=== PATIENT | female | born 1940 | race Caucasian/White ===

== ENCOUNTER 2017-12-25 10:30 | Emergency (ER) | payer MEDICARE ==
[2017-12-25 10:55] VITALS: BP 135/68
--- NOTE | 2017-12-25 11:21 | UC ---
Skin Complaint HPI - HPI Summary HPI Summary: 77 year old female with skin concern . 6 days ago had grand kid accidentally kick her and cut her leg . no metal . has had some intermittent pain in the leg. she was not sure if she should get it sutured. no SOB no fever. no calf pain. no discharge or streaking of the area PATIENT IS HARD OF HEARING LAST WEDNESDAY WAS PLAYING ON THE FLOOR WITH HER BROTHER'S GRANDCHILDREN AND ONE OF THEM HIT HER RIGHT LOWER DWYER AND CAUSED A LACERATION. SHE HAS BEEN CARING FOR THIS AT HOME AND IT SEEMS TO BE GETTING WORSE AND NOT BETTER. ON NO MEDICATIONS ON A REGULAR BASIS. LAST NIGHT SHE SEEMS TO A SPASM LIKE PAIN FROM THE SITE AND PERIODICALLY HAS A SHARP TINGLING PAIN IN IT. [ End ] - History of Current Complaint Chief Complaint: UCSkin Time Seen by Provider: 12/25/17 10:41 Stated Complaint: SHARP PAIN IN LEG Hx Obtained From: Patient Onset/Duration: Sudden Onset Pain Intensity: 4 - Allergy/Home Medications Allergies/Adverse Reactions: Allergies Allergy/AdvReac Type Severity Reaction Status Date / Time No Known Allergies Allergy Verified 12/25/17 10:46 Home Medications: Home Medications Aspirin/Diphenhydramine Citrat [Terra Pm Caplet] 1 tab PO TID PRN 12/25/17 [ History Confirmed 12/25/17] Review of Systems Skin: Other - leg laceraetion All Other Systems Reviewed And Are Negative: Yes PMH/Surg Hx/FS Hx/Imm Hx Previously Healthy: Yes - Surgical History Surgical History: Yes Surgery Procedure, Year, and Place: fx left hip 2009 - Family History Known Family History: Positive: Cardiac Disease, Hypertension - Social History Occupation: Retired Alcohol Use: Daily Substance Use Type: None Smoking Status (MU): Former Smoker Type: Cigarettes Length of Time of Smoking/Using Tobacco: 20+ YEARS HAS NOT SMOKED IN A WHILE Have You Smoked in the Last Year: No Household Exposure Type: Cigarettes - Immunization History Most Recent Tetanus Shot: UNSURE Physical Exam Triage Information Reviewed: Yes Appearance: Well-Appearing, No Pain Distress, Well-Nourished Vital Signs: Initial Vital Signs Temp 97.8 F 12/25/17 10:47 Pulse 85 12/25/17 10:47 Resp 16 12/25/17 10:47 BP 135/68 12/25/17 10:47 Pulse Ox 98 12/25/17 10:47 Vital Signs Reviewed: Yes Eyes: Positive: Conjunctiva Clear ENT: Positive: Normal ENT inspection Respiratory Exam: Normal Cardiovascular Exam: Normal Musculoskeletal Exam: Normal Musculoskeletal: Positive: Strength Intact, ROM Intact, No Edema Neurological Exam: Normal Psychological Exam: Normal Skin: Positive: Other - right anterior dwyer with skin tear . no disharge. no erythema. no streaking. neg homans. mild redness/irritation of the skin Course/Dx - Course Course Of Treatment: cleansed the area. no FB noted. topical antibiotics at home steri strips at this time placed. she declined antibiotics and will monitor her Sx and if redness / erythema/ pain swelling deve;ops start antibiotics and RTo for further evaluation - Diagnoses Provider Diagnoses: right anterior dwyer skin tear Discharge - Sign-Out/Discharge Documenting (check all that apply): Discharge/Admit/Transfer - Discharge Plan Condition: Good Disposition: HOME Prescriptions: Cephalexin CAP* [Keflex 250 CAP*] 250 mg PO QID #40 cap Patient Education Materials: Skin Tear (ED) Referrals: Nasrin Rashid MD [Primary Care Provider] - 3 Days Additional Instructions: WE DISCUSSED IF YOUR LEG STARTS TO HAVE REDNESS OR PAIN DEVELOP THEN AT THAT TIME START ANTIBIOTICS THAT HAVE ALREADY BEEN SENT TO YOUR PHARMACY - Billing Disposition and Condition Condition: GOOD Disposition: HOME
== END 2017-12-25 11:22 | disposition home or self-care (01) ==
LOC: UCEAST 10:30
DX: S81.811A Laceration without foreign body, right lower leg, initial encounter (principal); W50.1XXA Accidental kick by another person, initial encounter; Y93.89 Activity, other specified; Y92.9 Unspecified place or not applicable; Z87.891 Personal history of nicotine dependence
CPT/HCPCS: 99202; G0463

== ENCOUNTER 2018-07-03 11:22 | Emergency (ER) | payer MEDICARE ==
[2018-07-03 11:37] VITALS: BP 133/76
[2018-07-03] MEDS ORDERED: Tetan/Diph/Pertus SYR(Tdap)* 0.5 ML SYR(BOOSTRIX) use SYR IM ONE (11:46)
[2018-07-03] MEDS ORDERED: Lidocaine 2% PF * 5 ML VIAL INJ ONE (11:50)
--- NOTE | 2018-07-03 12:26 | UC ---
Throat Pain/Nasal Adams HPI - HPI Summary HPI Summary: 77 yo female presents with laceration to left leg. She tells me that about 20min [employer] she opened the car door and hit herself in the front of her left dwyer. She bandaged the area and came to . Says her last tetanus was 2 years ago. - History of Current Complaint Chief Complaint: UCLaceration Stated Complaint: LEG LAC Time Seen by Provider: 07/03/18 11:46 Hx Obtained From: Patient Onset/Duration: Sudden Onset Severity: Mild Pain Intensity: 2 Pain Scale Used: 0-10 Numeric - Allergies/Home Medications Allergies/Adverse Reactions: Allergies Allergy/AdvReac Type Severity Reaction Status Date / Time No Known Allergies Allergy Verified 07/03/18 11:37 Home Medications: Home Medications NK [No Home Medications Reported] 07/03/18 [History Confirmed 07/03/18] PMH/Surg Hx/FS Hx/Imm Hx - Additional Past Medical History Additional PMH: None - Surgical History Surgical History: Yes Surgery Procedure, Year, and Place: fx left hip 2009 - Family History Known Family History: Positive: Cardiac Disease, Hypertension - Social History Occupation: Retired Lives: Alone Alcohol Use: Daily Substance Use Type: None Smoking Status (MU): Former Smoker Type: Cigarettes Length of Time of Smoking/Using Tobacco: 20+ YEARS HAS NOT SMOKED IN A WHILE Have You Smoked in the Last Year: No Household Exposure Type: Cigarettes - Immunization History Most Recent Tetanus Shot: UNSURE Review of Systems Constitutional: Negative Skin: Other - Laceration left leg Respiratory: Negative Cardiovascular: Negative Neurovascular: Negative Musculoskeletal: Negative Neurological: Negative Psychological: Negative All Other Systems Reviewed And Are Negative: Yes Physical Exam - Summary Physical Exam Summary: GENERAL: NAD. WDWN. No pain distress. SKIN: Left anterior lower leg with 7.5cm flap-like laceration. The distal portion of the laceration is through the dermis, but the proximal portion of the laceration is a superficial skin tear. Actively bleeding. No FBs. Clean. CHEST: No accessory muscle use. Breathing comfortably and in no distress. CV: Pulses intact. Cap refill <2seconds NEURO: Alert. PSYCH: Age appropriate behavior. Triage Information Reviewed: Yes Vital Signs: Initial Vital Signs Temp 98.2 F 07/03/18 11:34 Pulse 103 07/03/18 11:34 Resp 18 07/03/18 11:34 BP 133/76 07/03/18 11:34 Pulse Ox 99 07/03/18 11:34 Vital Signs Reviewed: Yes Throat Pain/Nasal Course/Dx - Course Course Of Treatment: The procedure was explained to the pt and all questions were answered. A time out was performed, witnessed, and signed. The area was irrigated with 750mL sterile saline. 3mL of 2% lidocaine without epi was administered and good anesthetization was achieved. In the usual sterile fashion , EIGHT 6-0 prolene interrupted sutures were placed and the distal portion of the wound was approximated. Unable to approximate the proximal portion of the wound due to superficial skin tear and thin skin. The wound was bandaged with telfa. Pt tolerated procedure well. - Differential Dx/Diagnosis Provider Diagnoses: Laceration left leg Discharge - Sign-Out/Discharge Documenting (check all that apply): Patient Departure All imaging exams completed and their final reports reviewed: No Studies - Discharge Plan Condition: Stable Disposition: HOME Patient Education Materials: Care For Your Stitches (DC), Laceration (ED) Referrals: Nasrin Rashid MD [Primary Care Provider] - Additional Instructions: If you develop a fever, shortness of breath, chest pain, new or worsening symptoms - please call your PCP or go to the ED. 1) Please keep the area bandaged, clean, dry, and intact for the next 48hours and then change the dressing daily. 2) If you develop a fever, colored or thick discharge, increased pain or swelling - please call your PCP or go to the ED. 3) Please return in 10 days to have your EIGHT sutures removed. - Billing Disposition and Condition Condition: STABLE Disposition: Home Laceration Repair - Laceration Repair 1 Description: Stellate Laceration Size After Repair: Length (cm) - 7.5 Modified For Repair: No Anesthesia Used: 2.0% Lido Irrigation With Pressure Irrigation Device: Yes Closure Material: Sutures - Prolene Closure Method: Single Layer Suture Of: Skin Suture Type: Prolene - 6-0
== END 2018-07-03 13:25 | disposition home or self-care (01) ==
LOC: UCEAST 11:22
DX: S81.812A Laceration without foreign body, left lower leg, initial encounter (principal); W22.8XXA Striking against or struck by other objects, initial encounter; Y92.810 Car as the place of occurrence of the external cause; Z87.891 Personal history of nicotine dependence
CPT/HCPCS: 12002; 90715; 99211; G0463